=== PATIENT | male | born 1980 | race Caucasian/White ===

== ENCOUNTER 2018-01-09 09:05 | Emergency (ER) | payer OTHER ==
[2018-01-09 09:31] VITALS: BP 120/81; PULSE 65; O2SAT 97
--- NOTE | 2018-01-09 09:54 | ERPHSYRPT ---
- History of Present Illness Time Seen by Provider: 01/09/18 09:48 Source: patient Exam Limitations: no limitations Patient Subjective Stated Complaint: Sore throat x2 days Triage Nursing Assessment: Pt presents to the ED with complaints of sore throat since yesterday. Pt states woke up today nauseated. Pt states "I think I have strep throat." No other complaints at this time, no distress noted, skin PWD. Physician History: The patient is a 37-year-old male complaining of a sore throat that began yesterday. He denies cough or shortness of breath. He denies nausea or vomiting. He states he has been chilled at times. He states he has a sore throat frequently at this time of year. He wants an antibiotic and an aspirin. Timing/Duration: gradual onset, yesterday Severity: moderate ENT Location: throat Prearrival Treatment: no prearrival treatment Modifying Factors: Improves With: nothing Associated Symptoms: chills, sore throat Allergies/Adverse Reactions: No Known Drug Allergies Allergy (Verified 01/09/18 09:33) Home Medications: Fluoxetine HCl [Fluoxetine HCl] 40 mg PO DAILY 01/09/18 [History] Omeprazole 20 mg PO DAILY 01/09/18 [History] Zolpidem Tartrate [Zolpidem Tartrate] 10 mg PO QHS 01/09/18 [History] cloZAPine [Clozapine] 100 mg PO DAILY 01/09/18 [History] risperiDONE [Risperidone] 1 mg PO DAILY 01/09/18 [History] Hx Tetanus, Diphtheria Vaccination/Date Given: No Hx Influenza Vaccination/Date Given: No Hx Pneumococcal Vaccination/Date Given: No Immunizations Up to Date: No - Review of Systems Constitutional: Chills Eyes: No Symptoms Ears, Nose, & Throat: Throat Pain Respiratory: No Cough, No Dyspnea Cardiac: No Chest Pain, No Edema, No Syncope Abdominal/Gastrointestinal: No Abdominal Pain, No Nausea, No Vomiting, No Diarrhea Genitourinary Symptoms: No Dysuria Musculoskeletal: No Back Pain, No Neck Pain Skin: No Rash Neurological: No Dizziness, No Focal Weakness, No Sensory Changes Psychological: No Symptoms Endocrine: No Symptoms Hematologic/Lymphatic: No Symptoms Immunological/Allergic: No Symptoms All Other Systems: Reviewed and Negative - Past Medical History Pertinent Past Medical History: Yes Neurological History: No Pertinent History ENT History: No Pertinent History Cardiac History: No Pertinent History Respiratory History: No Pertinent History Endocrine Medical History: No Pertinent History Musculoskeletal History: No Pertinent History GI Medical History: GERD History: No Pertinent History Psycho-Social History: Bipolar, Depression Male Reproductive Disorders: No Pertinent History - Past Surgical History Past Surgical History: No Neuro Surgical History: No Pertinent History Cardiac: No Pertinent History Respiratory: No Pertinent History Gastrointestinal: No Pertinent History Genitourinary: No Pertinent History Musculoskeletal: No Pertinent History Male Surgical History: No Pertinent History - Social History Smoking Status: Current every day smoker How long have you smoked: 10 years Exposure to second hand smoke: Yes Drug Use: none Patient Lives Alone: No - Nursing Vital Signs Nursing Vital Signs: Initial Vital Signs Temperature 98.0 F 01/09/18 09:28 Pulse Rate 65 01/09/18 09:28 Respiratory Rate 15 01/09/18 09:28 Blood Pressure 120/81 01/09/18 09:28 O2 Sat by Pulse Oximetry 97 01/09/18 09:28 Pain Scale Pain Intensity 8 - Physical Exam General Appearance: no apparent distress, alert Eye Exam: bilateral eye: PERRL, EOMI Ear Exam: bilateral ear: auricle normal Nasal Exam: normal inspection Throat Exam: tonsillar exudate Neck Exam: supple Cardiovascular/Respiratory Exam: normal breath sounds, regular rate/rhythm Abdominal Exam: non-tender, soft Neurologic Exam: alert, oriented x 3, sensation nml, No motor deficits Skin Exam: normal color, warm, dry SpO2 Interpretation: normal SpO2: 97 Oxygen Delivery: Room Air Ordered Tests: Active Orders 24 hr Category Date Time Status CULTURE, THROAT Stat Lab 01/09/18 10:01 Received STREP SCREEN-BETA A Stat Lab 01/09/18 10:01 Completed Medication Summary Discontinued Medications Generic Name Dose Route Start Last Admin Trade Name Freq PRN Reason Stop Dose Admin Ketorolac Tromethamine 60 mg 01/09/18 09:56 01/09/18 10:00 Toradol 30 Mg Injection IM 01/09/18 09:57 60 mg STAT ONE Administration Ketorolac Tromethamine Confirm 01/09/18 09:58 Toradol 30 Mg Injection Administered 01/09/18 09:59 Dose 60 mg .ROUTE .STK-MED ONE Lab/Rad Data: Laboratory Results 01/09/18 Range/Units 10:01 Streptococcus Screen NEGATIVE (Negative) - Progress Progress: improved Progress Note: 01/09/18 10:50 Pt given toradol 60 mg IM. Counseled pt/family regarding: lab results, diagnosis - Departure Time of Disposition: 10:50 Departure Disposition: Home Clinical Impression: Acute pharyngitis Condition: Stable Critical Care Time: No Referrals: RIMMA MONTE MD [Primary Care Provider] - Additional Instructions: You have a sore throat that is caused by a virus. The rapid strep test was negative. At this time an antibiotic is not warranted. You were given Toradol 60 mg by IM in the ER. Take Tylenol and ibuprofen as needed. Gargle with warm salt water as needed. Follow-up with your primary medical doctor if the condition persists for the next 2 or 3 days.
[2018-01-09] MEDS ORDERED: TORAdol 30 mg Injection IM ONE (09:56)
[2018-01-09] MEDS ORDERED: TORAdol 30 mg Injection ONE (09:58)
== END 2018-01-09 11:05 | disposition home or self-care (01) ==
LOC: ED 09:05
DX: J02.9 Acute pharyngitis, unspecified (principal); Z79.899 Other long term (current) drug therapy
CPT/HCPCS: 87070; 87430; 99283; J1885